=== PATIENT | male | born 1970 | race Caucasian/White ===

== ENCOUNTER 2017-09-25 16:15 | Emergency (ER) | payer OTHER ==
[~2017-09-25 16:15] MED LIST: Z.0.NO CURRENT MEDS
[2017-09-25 16:17] VITALS: BP 170/96; PULSE 115; RESP 16; TEMP 98.4; O2SAT 98
--- NOTE | 2017-09-25 19:00 | PD ---
HPI Chief Complaint: Complaint Time Seen by Provider: 17:59 Travel History International Travel<30 days: No Contact w/Intl Traveler<30days: No Traveled to known affect area: No History of Present Illness HPI 46-year-old male here for evaluation of testicular pain. She reports having pain in his left testicle for about 6 weeks. He was evaluated by his primary care physician Dr. Alfaro and reportedly had a CT of his abdomen and pelvis which showed no abnormal masses or hernias as well as a testicular ultrasound that was performed yesterday and shows an apparent cyst by his left testicle. He reports that the pain significantly worsened today, however at time of my assessment he says the pain is improved. He reports that he has been referred to a urologist, however has not seen him yet. No dysuria. He is and is a monogamous relationship. Patient is also reporting that he is having pain down his entire posterior left leg. No history of DVT or PE. No chest pain or dyspnea. PFSH Past Medical History Cardiac Catheterization: No Cardiovascular Problems: No High Cholesterol: No Congestive Heart Failure: No Diabetes: No Past Surgical History Coronary Artery Bypass Graft: No Social History Alcohol Use: Yes (OCC) Tobacco Use: Yes (1 PPD) Substance Use: No Allergies-Medications (Allergen,Severity, Reaction): Coded Allergies: penicillin G (Unverified Allergy, Severe, 03/19/17) Reported Meds & Prescriptions Reported Meds & Active Scripts Active Reported No Current Meds (Miscellaneous Medication) [facility] [place] Review of Systems Except as stated in HPI: all other systems reviewed are Neg Physical Exam Narrative GENERAL: Well-developed, well-nourished, comfortable, no apparent distress. SKIN: Focused skin assessment warm/dry. No rash. HEAD: Atraumatic. Normocephalic. EYES: Pupils equal and round. No scleral icterus. No injection or drainage. ENT: Mucous membranes pink and moist. NECK: Trachea midline. No JVD. CARDIOVASCULAR: Regular rate and rhythm. No murmur appreciated. RESPIRATORY: No accessory muscle use. Clear to auscultation. Breath sounds equal bilaterally. GASTROINTESTINAL: Abdomen soft, non-tender, nondistended. : Normal external genitalia. Mild fullness superiorly to the left testicle without masses. No skin color changes. Normal cream start reflex bilaterally. No abnormal swelling. No hernias. MUSCULOSKELETAL: No obvious deformities. No clubbing. No cyanosis. No edema. Bilateral calves are supple, nontender. NEUROLOGICAL: Awake and alert. No obvious cranial nerve deficits. Motor grossly within normal limits. Normal speech. PSYCHIATRIC: Appropriate mood and affect; insight and judgment normal. Data Data Last Documented VS Vital Signs Date Time Temp Pulse Resp B/P (MAP) Pulse Ox O2 Delivery O2 Flow Rate FiO2 09/25/17 16:17 98.4 115 16 170/96 (120) 98 Orders Orders Urinalysis - C+S If Indicated (09/25/17 18:08) Us Testicles W Doppler (09/25/17 ) Us Leg Venous Doppler (09/25/17 ) Labs Laboratory Tests Test 09/25/17 18:48 Urine Color LIGHT-YELLOW Urine Turbidity CLEAR Urine pH 6.0 Urine Specific [place] 1.003 Urine Protein NEG mg/dL Urine Glucose (UA) NEG mg/dL Urine Ketones NEG mg/dL Urine Occult Blood NEG Urine Nitrite NEG Urine Bilirubin NEG Urine Urobilinogen LESS THAN 2.0 MG/DL Urine Leukocyte Esterase NEG Urine RBC LESS THAN 1 /hpf Microscopic Urinalysis Comment CULT NOT INDICATED MDM Medical Decision Making Medical Screen Exam Complete: Yes Emergency Medical Condition: Yes Differential Diagnosis Testicular torsion, testicular mass, epididymitis, varicocele, hydrocele, Narrative Course Left lower extremity venous duplex: CONCLUSION: 1. No DVT identified. Testicular ultrasound: CONCLUSION: 1. No intratesticular mass identified. 2. Blood flow to the testicles is intact. 3. Left testicular varicocele. 4. 5 mm epididymal cyst on the right.\ UA is not suggestive of UTI. Patient was made aware of all findings and provided a copy of both ultrasound reports. He is resting comfortably. No peritoneal signs on abdominal exam. No hernias. He has a referral for a urologist. He is stable for discharge home with outpatient follow-up with his urologist or primary care physician this week. He was advised on when to return to the emergency department. He verbalizes understanding and agreement with plan. Diagnosis Primary Impression: Testicular pain, left Additional Impression: Varicocele Referrals: Primary Care Physician 3 days Urologist 3 days Additional Instructions: Follow-up with your primary care physician this week. Follow-up with your urologist this week. Return to the emergency department for worsening symptoms or any other concerns. Disposition: 01 DISCHARGE HOME Condition: Stable Everardo Gauthier MD Sep 25, 2017 19:00
[2017-09-25 19:04] LABS: BILIRUBIN, URINE NEG (NEG); BLOOD, URINE NEG (NEG); GLUCOSE,URINE NEG (NEG); KETONE, URINE NEG (NEG); NITRITE,URINE NEG (NEG); URINE COLOR LIGHT-YELLOW (YELLW/STRAW); URINE LEUKOCYTE ESTERASE NEG (NEG)
--- NOTE | 2017-09-25 19:47 | RADRPT ---
EXAM DATE/TIME: 09/25/2017 18:29 [facility] COMPARISON: No previous studies available for comparison. INDICATIONS : Scrotal pain. MEDICAL HISTORY : Scrotal and left leg pain. SURGICAL HISTORY : None. ENCOUNTER: Initial ACUITY: 2 months PAIN SCORE: 3/10 LOCATION: Left scrotum. MEASUREMENTS: RIGHT TESTICLE: 4.7 x 3.2 x 2.3 cm LEFT TESTICLE: 4.1 x 2.9 x 1.9 cmcm FINDINGS: RIGHT TESTICLE: Homogeneous echotexture without intra or extratesticular mass. Blood flow is symmetric and within no rmal limits. No hydrocele or varicocele. Epididymis demonstrates a 0.5 x 0.3 cm simple cyst in the right epididymis. LEFT TESTICLE: Homogeneous echotexture without intra or extratesticular mass. Blood flow is symmetric and within no rmal limits. There is no hydrocele. The exam does demonstrate a small varicocele the left inguinal ca nal. Epididymis is within normal limits. SCROTUM: Within normal limits. CONCLUSION: 1. No intratesticular mass identified. 2. Blood flow to the testicles is intact. 3. Left testicular varicocele. 4. 5 mm epididymal cyst on the right. Alexey Padilla MD on September 25, 2017 at 19:43 Board Certified Radiologist. This report was verified electronically.
--- NOTE | 2017-09-25 19:48 | RADRPT ---
EXAM DATE/TIME: 09/25/2017 18:29 [facility] COMPARISON: US TESTICLE W/DOPPLER, September 25, 2017, 18:29. INDICATIONS : Left leg pain. MEDICAL HISTORY : Scrotal and left leg pain. SURGICAL HISTORY : None. ENCOUNTER: Initial ACUITY: 1 day PAIN SCORE: 2/10 LOCATION: Left leg. TECHNIQUE: Venous ultrasound of the leg was performed from the inguinal ligament to the proximal calf. Real-harry e, color Doppler and spectral tracing, compression and augmentation techniques were used. FINDINGS: There is normal compressibility of the deep venous system from the inguinal region to the proximal ca lf. No echogenic clot is seen in the lumen of the common femoral, femoral, popliteal, and posterior tibial veins. There is a normal response of the venous system to proximal and distal augmentation an d respiration. CONCLUSION: 1. No DVT identified. Alexey Padilla MD on September 25, 2017 at 19:45 Board Certified Radiologist. This report was verified electronically.
== END 2017-09-25 20:42 | disposition home or self-care (01) ==
LOC: NEPD 16:15
DX: N50.812 Left testicular pain (principal); I86.1 Scrotal varices; F17.210 Nicotine dependence, cigarettes, uncomplicated; Z88.0 Allergy status to penicillin
CPT/HCPCS: 76870; 81001; 93971; 93975; 99284